=== PATIENT | female | born 1995 | race Caucasian/White ===

== ENCOUNTER 2019-09-22 18:32 | Emergency (ER) | payer OTHER, SELFPAY ==
[2019-09-22 18:52] VITALS: BP 147/100; PULSE 110; RESP 22; TEMP 36.7; O2SAT 99; BMI 46.3
--- NOTE | 2019-09-22 18:56 | HMH.EDUTC ---
[facility] Disposition Clinical Impression: Sunburn, blistering Severe sun exposure Qualifiers: Encounter type: initial encounter Qualified Code(s): X32.XXXA - Exposure to sunlight, initial encounter Disposition: Home, Self-Care Condition on Discharge: Good Instructions: How to Take Care of a Burn, How to Avoid Sunburn, Sunburn, DI for Sunburn, Silver Sulfadiazine, Cephalexin, DI for Blisters Additional Instructions: Take antibiotics as prescribed *Make sure to gently clean area at least twice daily and apply Sivadene and sterile dressing to blisters on bilateral lower legs twice daily as advised You was given the remainder of that container in the [facility] Follow up with family doctor tomorrow as scheduled Watch for worsening signs of infection Return if needed Straight to ER if any life threatening symptoms Prescriptions: cephALEXin [Keflex 500mg Cap] 500 mg PO QID 7 Days #28 cap Transmission Status: Pending to [id number] Referrals: Provider,Referral, MD [Primary Care Provider] - As needed (Follow up tomorrow in the clinic as scheduled) Time of Disposition: 19:32 Medical Decision Making - [place] Inquiry Pt receiving controlled substance: No [place] was queried for this patient: No Vital Signs: 09/22/19 18:52 Temperature 98.1 F Temperature Source Oral Pulse Rate [Right Brachial] 110 H Respiratory Rate 22 Blood Pressure [Right Arm] 147/100 H Blood Pressure Mean [Right Arm] 115 Blood Pressure Source [Right Arm] Automatic Cuff Blood Pressure Position [Right Arm] Sitting 02 Sat by Pulse Oximetry 99 Oxygen Delivery Method Room Air Orders (Tests/Meds): ED MEDICATIONS Discontinued Medications Generic Name Dose Route Start Last Admin Trade Name Sofia PRN Reason Stop Dose Admin Cephalexin HCl 500 mg 09/22/19 19:18 Cephalexin 500mg Capsule PO 09/22/19 19:19 ONCE ONE Protocol Silver Sulfadiazine 1 gm 09/22/19 19:07 Silvadene Cream 400gm TP 09/22/19 19:08 ONCE ONE Medical Decision Narrative: Patient educated to make sure to gently clean sunburn areas on lower extremities with mild soap and water several times a day to help prevent infection and follow up with PCP tomorrow [facility] HPI - General Stated complaint: Blisters on both legs from sunburn Time Seen by Provider: 09/22/19 18:57 Mode of Arrival: Ambulatory Source of Information: Patient Limitations: No Limitations Description of Symptoms (Recalled from Triage Doc. by RN): Pt c/o sever sunburn to BLE. She reports blisters that are draining. HEENT Symptoms (Recalled from RN notes): No Resp Symptoms (Recalled from RN notes): No Skin Symptoms (Recalled from RN notes): Yes MS Symptoms (Recalled from RN notes): No Functional Status (Recalled from RN notes): NA - History of Present Illness Provider Complaint: Patient states that she was seen by PCP on and given Indomethacin and told to follow up tomorrow States that her legs was burned very bad and she had blisters on her lower legs, shoulders and arms States that shoulders and arms are better but today she has been having drainage from the blisters on her legs and she was worried it was infected States that it is still sore and hurts when she touches it - Related Data Previous Rx's Medication Instructions Recorded norgestimate 0.25 mg-ethinyl 1 tab PO DAILY #28 tab 08/16/17 estradiol 35 mcg tablet cephALEXin [Keflex 500mg Cap] 500 mg PO QID 7 Days #28 cap 09/22/19 Allergies Allergy/AdvReac Type Severity Reaction Status Date / Time NO KNOWN ALLERGIES - NKA Allergy Unknown Uncoded 04/04/17 14:02 - Worker's Comp Is this a Worker's Comp case?: No [facility] History - Hepatitis A Screen Drug use history?: No High risk sexual behaviors?: No History of sexually transmitted infection?: No Currently employed?: No Childcare worker?: No Do you have indoor plumbing?: Yes Do you have electricity?: Yes Attestation statement:: This patient yeager
[2019-09-22 19:47] VITALS: BP 119/84; PULSE 86; RESP 18; O2SAT 99
[2019-09-22 20:01] VITALS: BP 119/84; PULSE 86; RESP 18; TEMP 36.7; O2SAT 99
== END 2019-09-22 20:01 | disposition home or self-care (01) ==
PROVIDERS: Emergency Provider Nurse Practitioner
DX: L55.1 Sunburn of second degree (principal); X32.XXXA Exposure to sunlight, initial encounter; Z90.49 Acquired absence of other specified parts of digestive tract
CPT/HCPCS: 99201

== ENCOUNTER 2020-03-06 11:58 | Emergency (ER) | payer OTHER, SELFPAY ==
[2020-03-06 13:45] VITALS: BP 130/89; PULSE 78; RESP 17; TEMP 36.6; O2SAT 99; BMI 41.6
--- NOTE | 2020-03-06 14:10 | HMH.EDUTC ---
[facility] [place] Clinical Impression: Exposure to COVID-19 virus Disposition: Home, Self-Care Condition on Discharge: Good Instructions: Preventing the Spread of Coronavirus Discharge Instructions Additional Instructions: Drink plenty of fluids. Take tylenol for pain or fever. Return if you begin to have difficulty breathing. Follow up with your regular doctor. GO TO THE ER FOR ANY WORSENING SYMPTOMS Prescriptions: Ondansetron [Zofran 4mg ODT] 4 mg PO Q8HP PRN #12 tab.rapdis PRN Reason: Nausea Transmission Status: Received by [id number] Referrals: Jesika Khan APRN [Primary Care Provider] - Time of Disposition: 14:14 Medical Decision Making - Medical Records Medical records reviewed: No: I reviewed the patient's medical records. - [place] Inquiry Pt receiving controlled substance: No Vital Signs: 03/06/20 13:45 03/06/20 14:23 Temperature 97.8 F 97.8 F Temperature Source Oral Pulse Rate 78 Pulse Rate [Right Brachial] 78 Respiratory Rate 17 17 Blood Pressure 130/89 Blood Pressure [Right Arm] 130/89 Blood Pressure Mean [Right Arm] 102 Blood Pressure Source [Right Arm] Automatic Cuff Blood Pressure Position [Right Arm] Sitting 02 Sat by Pulse Oximetry 99 Oxygen Delivery Method Room Air Orders (Tests/Meds): ORDERS Category Date Time Status Covid-19 Nasal PCR ([facility]) Routine Lab 03/06/20 13:40 Received [facility] HPI - General Stated complaint: Headache, nausea Time Seen by Provider: 03/06/20 14:10 Mode of Arrival: Ambulatory Source of Information: Patient Limitations: No Limitations Description of Symptoms (Recalled from Triage Doc. by RN): PATIENT REQUESTING COVID TEST D/T EXPOSURE. C/O NAUSEA, HEADACHE, AND LOSS OF TASTE HEENT Symptoms (Recalled from RN notes): No Resp Symptoms (Recalled from RN notes): No Skin Symptoms (Recalled from RN notes): No MS Symptoms (Recalled from RN notes): No Functional Status (Recalled from RN notes): WNL - History of Present Illness Provider Complaint: She was exposed to covid by a coworker around 4 days ago. She is having some nausea, diarrhea, loss of taste and smell. - Related Data Previous Rx's Medication Instructions Recorded norgestimate 0.25 mg-ethinyl 1 tab PO DAILY #28 tab 08/16/17 estradiol 35 mcg tablet cephALEXin [Keflex 500mg Cap] 500 mg PO QID 7 Days #28 cap 09/22/19 Ondansetron [Zofran 4mg ODT] 4 mg PO Q8HP PRN #12 tab.rapdis 03/06/20 Allergies Allergy/AdvReac Type Severity Reaction Status Date / Time No Known Allergies Allergy Verified 03/06/20 14:01 - Worker's Comp Is this a Worker's Comp case?: No H History - Hepatitis A Screen Drug use history?: No High risk sexual behaviors?: No History of sexually transmitted infection?: No Currently employed?: No Childcare worker?: No Do you have indoor plumbing?: Yes Do you have electricity?: Yes Attestation statement:: This patient has been screened for Hepatitis A risk factors. I have reviewed the patient's past medical history: Yes Other Surgeries: Yes: Cholecystectomy Amputation: No Fractures: No - Social History Smoking Status: Never smoker Alcohol Intake: never Occupational Status: other Family Hx:: Hypertension ROS Obtained: Yes All systems reviewed & no additional complaints - Constitutional Constitutional: Reports system reviewed and no additional complaints, except as docu - Eyes Eyes: Reports system reviewed and no additional complaints, except as docu - ENT Ears, Nose, Mouth, and Throat: Reports system reviewed and no additional complaints, except as docu - Cardiovascular Cardiovascular: Reports system reviewed and no additional complaints, except as docu - Respiratory Respiratory: Yes system reviewed and no additional complaints, except as docu - Gastrointestinal Gastrointestingal: Reports: system reviewed and no additional complaints, except as docu Physical Exam - General Gene
[2020-03-06 14:23] VITALS: BP 130/89; PULSE 78; RESP 17; TEMP 36.6; O2SAT 99
== END 2020-03-06 14:27 | disposition home or self-care (01) ==
PROVIDERS: Emergency Provider Nurse Practitioner Family; PCP Nurse Practitioner Family
DX: Z20.828 Contact with and (suspected) exposure to other viral communicable diseases (principal)
CPT/HCPCS: 99201; U0003

== ENCOUNTER → 2020-04-22 14:08 | Outpatient (CLI) | payer OTHER, SELFPAY ==
--- NOTE | 2020-04-22 14:14 | XR_ITS ---
PROCEDURE: XR KUB CLINICAL INDICATION: LOWER ABD PAIN COMPARISON: No exams were available for comparison FINDINGS: Gas pattern-The bowel gas pattern is unremarkable. No obvious obstruction. Calcifications-No abnormal calcifications are evident. No obvious renal or ureteral calculi. Bones-No acute bony anomalies evident. IMPRESSION: No acute findings. Dictated by: Mario Alberto Jules MD 04/22/2020 17:45 Mario Alberto Jules MD in [place] 04/22/2020 17:45
== END ==
PROVIDERS: PCP Nurse Practitioner Family; Visit Provider Nurse Practitioner Family
DX: R10.30 Lower abdominal pain, unspecified (principal)
CPT/HCPCS: 74018

== ENCOUNTER 2021-03-08 07:31 | Emergency (ER) | payer OTHER, SELFPAY ==
[2021-03-08] VITALS (12 sets, daily range): BP systolic 98–122; BP diastolic 52–75; PULSE 70–104; RESP 18–20; TEMP 36.4; O2SAT 96–100; BMI 44.4
--- NOTE | 2021-03-08 07:45 | ECG_ITS ---
APPROVED REPORT Exam: Resting ECG HR:110 bpm ECG Measurements Heart Rate 110 AXES IN 152 P 32 QRSd 78 QRS 48 QT 318 T 31 QTc 430 Conclusion Sinus tachycardia Possible Left atrial enlargement RSR' or QR pattern in V1 suggests right ventricular conduction delay Nonspecific T wave abnormality Abnormal ECG Electronically signed by : [place]o Alba MD 03/09/2021 12:17:49
[2021-03-08 08:05] LABS: Basophils # 0.1 K/mm3 (0-0.2); Basophils % 0.5 % (0.1-2.0); Eosinophils # 0.1 K/mm3 (0.0-0.4); Eosinophils % 0.3 % (0.1-12.0); Hematocrit 40.9 % (37.0-47.0); Hemoglobin 13.6 g/dL (12.2-16.2); Lymphocytes # 1.4 K/mm3 (0.7-4.5); Lymphocytes % 4.9 % (10-50); Mean Corpuscular HGB Conc 33.2 g/dL (31.8-35.4); Mean Corpuscular Hemoglobin 27.9 pg (27.0-31.2); Mean Corpuscular Volume 84.1 fl (81-99); Mean Platelet Volume 7.6 fl (7.4-10.4); Monocytes # 0.9 K/mm3 (0.1-1.0); Monocytes % 3.1 % (1.7-9.3); Neutrophils # 25.8 K/mm3 (1.8-7.8); Neutrophils % 91.3 % (37.0-80.0); Platelet Count 363 K/mm3 (142-424); Red Blood Count 4.86 M/mm3 (4.20-5.40); Red Cell Distribution Width 12.8 % (11.5-17.5); White Blood Count 28.3 K/mm3 (4.8-10.8)
--- NOTE | 2021-03-08 08:06 | HMH.EDGENADL ---
ED Disposition Clinical Impression: Nausea vomiting and diarrhea Disposition: Home, Self-Care Condition on Discharge: Good Instructions: DI for Nausea -- Adult, DI for Diarrhea and Traveler's Diarrhea -- Adult Prescriptions: Ondansetron [Zofran 4mg ODT] 4 mg PO TIDP PRN #12 tab PRN Reason: Nausea Transmission Status: Pending to [id number] Referrals: Jesika Khan APRN [Primary Care Provider] - - Critical Care Critical Care Time: No Attestation: On 03/08/21, the high probability of a clinically significant, sudden or life threatening deterioration of the following system(s) required my full and direct attention, intervention and personal management. The time I documented below is in addition to time spent performing reported procedures but includes the following listed in this critical care notation. Medical Decision Making - [place] Inquiry Pt receiving controlled substance: No Vital Signs: 03/08/21 07:33 03/08/21 08:00 Temperature 97.6 F Temperature Source Oral Pulse Rate 97 H Pulse Rate [Left Radial] 104 H Respiratory Rate 20 18 Blood Pressure 112/68 Blood Pressure [Right Arm] 113/68 Blood Pressure Mean 82 Blood Pressure Mean [Right Arm] 83 Blood Pressure Source [Right Arm] Automatic Cuff Blood Pressure Position [Right Arm] Sitting 02 Sat by Pulse Oximetry 96 97 Oxygen Delivery Method Room Air - Lab Data Lab Results 03/08/21 07:41: WBC 28.3 H*, RBC 4.86, Hgb 13.6, Hct 40.9, MCV 84.1, MCH 27.9, MCHC 33.2, RDW 12.8, Plt Count 363, MPV 7.6, Neut % (Auto) 91.3 H, Lymph % (Auto) 4.9 L, [place] % (Auto) 3.1, Eos % (Auto) 0.3, Baso % (Auto) 0.5, Neut # (Auto) 25.8 H, Lymph # (Auto) 1.4, [place] # (Auto) 0.9, Eos # (Auto) 0.1, Baso # (Auto) 0.1, Total Counted 100, Neutrophils % (Manual) 87 H, Lymphocytes % (Manual) 10, Monocytes % (Manual) 3, Platelet Estimate Normal, Hypochromasia 1+ 03/08/21 07:41: Sodium 135 L, Potassium 4.2, Chloride 100, Carbon Dioxide 27, Anion Gap 12.2, BUN 12, Creatinine 0.70, Estimated Creat Clear 117, Estimated GFR 104, Est GFR ( Amer) 125, Glucose 120 H, Calcium 9.3 03/08/21 07:41: Serum HCG, Qual Negative 03/08/21 09:00: Urine Color Yellow, Urine Appearance Clear, Urine pH 7.0, Ur Specific [place] 1.015, Urine Protein Trace, Urine Glucose (UA) Negative, Urine Ketones Negative, Urine Blood Negative, Urine Nitrate Negative, Urine Bilirubin Negative, Urine Urobilinogen 0.2, Ur Leukocyte Esterase 1+ A, Urine RBC None, Urine WBC 5-10, Ur Squamous Epith Cells 3-5, Urine Bacteria 1+ 03/08/21 09:00: Lactate 1.3 Result diagrams: 03/08/21 07:41 03/08/21 07:41 Orders (Tests/Meds): ORDERS Category Date Time Status Rapid PCR Covid and Flu A/B Stat Lab 03/08/21 09:00 Received Blood Culture Stat Micro 03/08/21 09:00 Received Urine Culture Stat Micro 03/08/21 09:00 Received Medical Decision Narrative: 25-year-old female with no reported past medical history presents for evaluation of 1 day of nausea, vomiting, diarrhea mild lightheadedness with a normal neurological exam here in the ED. She has mildly tender in the left lower quadrant but without guarding or rebound. Is tachycardic on initial vitals consistent with mild dehydration in the setting of GI losses. Will give IV fluid bolus, Zofran here in the ED. EKG was obtained here in the ED to my arrival which I evaluated and it shows sinus tachycardia without acute ischemic changes. She denies denies VTE risk factors, has no chest pain or trouble breathing, no hypoxia on exam, so acute PE is unlikely. Will plan to reassess after IVF bolus and zofran here in ED. hx and physical more consistent with acute gastroenteritis. Other considerations include gastritis, , skyler. Will obtain cbc, bmp, test. wbc 28k. Lactate and blood cultures obtained as well. Lactate wnl. Urine obtained and urinalysis without significant findings for UTI and patient without urinary symptoms of frequency changes, dysu
[2021-03-08 08:07] LABS: MANUAL DIFFERENTIAL MANUAL DIFFERENTIAL (MANUAL DIFF)
[2021-03-08 08:19] LABS: Anion Gap 12.2 mEq/L (5-15); Blood Urea Nitrogen 12 mg/dl (7-17); Calcium 9.3 mg/dl (8.4-10.2); Carbon Dioxide 27 mmol/L (22.0-30.0); Chloride 100 mmol/L (98-107); Creatinine Clearance Estimated 117 mL/min (50-200); Estimated Glomerular Filt Rate 104 ml/min (>60); GFR (African American) 125 ML/MIN (>60); Glucose 120 mg/dl (74-100); HCG Qualitative, Serum Negative (Negative); Potassium 4.2 mmoL/L (3.5-5.1); Sodium 135 mmol/L (136-145)
[2021-03-08 08:28] LABS: Hypochromasia 1+; Lymphocytes % 10 % (10-50); Monocytes % 3 % (2-9); Neutrophils % 87 % (42-76); Platelet Estimate Normal; Total Cells Counted 100
--- NOTE | 2021-03-08 09:10 | XR_ITS ---
PROCEDURE: XR CHEST PORTABLE CLINICAL HISTORY: weakness COMPARISON: No exams were available for comparison FINDINGS: The cardiomediastinal silhouette and pulmonary vascularity are within normal limits. The lungs are clear without infiltrates, suspicious nodules, or pleural effusions. No acute bony abnormalities. IMPRESSION: No acute findings. Dictated by: Mario Alberto Jules MD 03/08/2021 09:56 Mario Alberto Jules MD in [place] 03/08/2021 09:56
[2021-03-08 09:24] LABS: Microscopic, Urine URINE MICROSCOPIC (MICROSCOPIC)
[2021-03-08 09:30] LABS: Lactic Acid 1.3 mmol/L (0.7-2.1)
[2021-03-08 09:35] LABS: Appearance,Urine CLEAR (Clear); Bilirubin,Urine Negative (Negative); Blood, Urine Negative (Negative); Color,Urine YELLOW (Yellow); Glucose,Urine (UA) Negative (Negative); Ketones,Urine Negative (Negative); Leukocyte Esterase,Urine 1+ (Negative); Nitrate,Urine Negative (Negative); Protein,Urine TRACE (Negative); Specific Gravity, Urine 1.015 (1.005-1.030); Urobilinogen,Urine 0.2 EU/dl (0.2)
[2021-03-08 09:48] LABS: Bacteria,Urine 1+ /lpf
[2021-03-08 10:19] LABS: Coronavirus 19, PCR Not Detected (NotDetected); Influenza A, PCR Not Detected (NotDetected); Influenza B, PCR Not Detected (NotDetected)
== END 2021-03-08 12:02 | disposition home or self-care (01) ==
PROVIDERS: Emergency Provider Student in an Organized Health Care Education/Training Program; PCP Nurse Practitioner Family
DX: R42 Dizziness and giddiness (principal); R11.2 Nausea with vomiting, unspecified; R19.7 Diarrhea, unspecified
CPT/HCPCS: 36415; 71045; 80048; 81001; 83605; 84703; 85007; 85025; 87040; 87086; 87088; 87186; 93005; 99283; C9803; U0003; U0005

== ENCOUNTER → 2021-04-30 08:57 | Outpatient (CLI) | payer OTHER, SELFPAY | PROVIDERS: Visit Provider Nurse Practitioner | DX: U07.1 COVID-19 (principal) | CPT/HCPCS: C9803; U0003; U0005 ==

== ENCOUNTER → 2022-05-20 18:53 | Outpatient (CLI) | payer OTHER, BC, SELFPAY ==
[2022-05-20 17:51] LABS: Basophils # 0.1 K/mm3 (0-0.2); Basophils % 1.1 % (0.1-2.0); Eosinophils # 0.1 K/mm3 (0.0-0.4); Eosinophils % 1.7 % (0.1-12.0); Hematocrit 42.1 % (37.0-47.0); Hemoglobin 13.4 g/dL (12.2-16.2); Lymphocytes % 40.2 % (10-50); Mean Corpuscular HGB Conc 31.7 g/dL (31.8-35.4); Mean Corpuscular Hemoglobin 26.6 pg (27.0-31.2); Mean Corpuscular Volume 83.9 fl (81-99); Monocytes # 0.4 K/mm3 (0.1-1.0); Monocytes % 5.1 % (1.7-9.3); Neutrophils # 3.9 K/mm3 (1.8-7.8); Neutrophils % 51.9 % (37.0-80.0); Platelet Count 382 K/mm3 (142-424); Red Blood Count 5.02 M/mm3 (4.20-5.40); Red Cell Distribution Width 13.5 % (11.5-17.5); White Blood Count 7.4 K/mm3 (4.8-10.8)
[2022-05-20 18:57] LABS: Alanine Aminotransferase 33 U/L (12-78); Albumin Level 4.1 g/dl (3.5-5.0); Albumin/Globulin Ratio 1.4 (1.1-1.8); Alkaline Phosphatase 76 U/L (38-126); Anion Gap 10.7 mEq/L (5-15); Aspartate Amino Transferase 31 U/L (14-36); Bilirubin,Total 0.6 mg/dl (0.2-1.3); Blood Urea Nitrogen 11 mg/dl (7-17); Carbon Dioxide 26 mmol/L (22.0-30.0); Chloride 107 mmol/L (98-107); Chol/HDL Ratio 3.5 (1-3.5); Cholesterol 171 mg/dl (140-200); Estimated Glomerular Filt Rate 103 ml/min (>60); GFR (African American) 124 ML/MIN (>60); Globulin 2.9 g/dL (1.3-3.2); Glucose 95 mg/dl (74-100); HDL Cholesterol 49 mg/dl (40-60); Potassium 4.7 mmoL/L (3.5-5.1); Sodium 139 mmol/L (136-145); Triglycerides 104 mg/dl (30-150); VLDL Cholesterol 21 mg/dL (0-40)
[2022-05-20 19:08] LABS: Direct LDL Cholesterol 96.07 mg/dL (100-129)
[2022-05-20 19:17] LABS: Free Thyroxine Index 3.1 ug/dL (5.93-13.13); T4 (Thyroxine) 9.7 ug/dl (5.53-11.0); Triiodothryronine (T3) Uptake 32 % (23.5-40.5)
[2022-05-20 19:31] LABS: Thyroid Stimulating Hormone 1.28 uIU/mL (0.465-4.68)
== END ==
PROVIDERS: PCP Nurse Practitioner Family; Visit Provider Nurse Practitioner Family
DX: I10 Essential (primary) hypertension (principal); Z79.899 Other long term (current) drug therapy
CPT/HCPCS: 80053; 80061; 84436; 84443; 84479; 85025

== ENCOUNTER 2022-07-04 08:32 | Emergency (ER) | payer OTHER, BC, SELFPAY ==
[2022-07-04 08:40] VITALS: BP 117/82; PULSE 112; RESP 20; TEMP 36.8; O2SAT 97; BMI 45.6
--- NOTE | 2022-07-04 09:00 | EXP.UTC ---
Discharge Plan Disposition Patient Disposition: Home, Self-Care Condition: Good Prescriptions Prescriptions: No Action mometasone 0.1 % cream topical clotrimazole-betamethasone 1-0.05 % cream 1 applic topical BID metoprolol succinate 25 mg tablet extended release 24 hr 25 mg PO DAILY Qty: 30 2RF fluticasone propionate [Flonase Allergy Relief] 50 mcg/actuation spray,suspension 2 spray intranasal DAILY Rx Instructions: administer into each nostril fexofenadine [Alanna Allergy] 180 mg tablet 180 mg PO DAILY omeprazole 20 mg capsule,delayed release(DR/EC) 20 mg PO DAILY PRN hydrochlorothiazide 25 mg tablet 12.5 mg PO DAILY Qty: 30 2RF Referrals Follow up/Referrals: Hussain Montiel MD [Primary Care Provider] - See instructions Activity Restrictions/Add. Instructions Additional Instructions/Restrictions: *Monitor Temp, Over the counter Motrin or Tylenol as directed/as needed Tylenol every 4 hours and Motrin every 6 hours (as long as your family doctor has told you that you can take it) for fever or pain. and straight to ER if unable to lower temp less than 101.0 after medication given *Warm salt water gargles may help to soothe the throat *Throat Lozenges? *Warm fluids like tea with honey may help to soothe the throat? *Sleep elevated *Humidifier/Vaporizer Over the counter cough medication like Robittusin may help with cough if you can take it Your throat swab was sent for culture. Those results are typically sent to your primary care. Be sure to follow up in 2-3 days with your family doctor/primary care physician if no improvement so they can review those result and treat if necessary. If you don?t have a primary care doctor, I recommend you get one but in the mean time, you will have to return to a walk in clinic Follow up IMMEDIATELY for new or worsening symptoms or no Noticeable improvement over the next 48-72 hours. 911 for difficulty breathing or swallowing Clinical Impressions Clinical Impression: Viral upper respiratory infection Stand Alone Forms Stand Alone Forms: Work/School Release Instructions Patient Instructions: Sore Throat, Cough, DI for Viral Upper Respiratory Infection -- Adult Discharge ED Provider: Annabel Farrar [facility] [place] General Stated complaint: sore throat,cough,nasal congestion Time Seen by Provider: 07/04/22 09:01 History of Present Illness Provider Complaint: Patient states that her daughter tested positive for strep throat yesterday and last night she started having sore throat and headache with nasal congestion States that today her throat was still hurting so she came in to get checked for strep throat Related Data Home Medications Medication Instructions Recorded Confirmed omeprazole 20 mg capsule,delayed 20 mg PO DAILY PRN 05/20/22 06/10/22 release clotrimazole-betamethasone 1 1 applic topical BID 06/10/22 06/10/22 %-0.05 % topical cream mometasone 0.1 % topical cream g topical 06/10/22 06/10/22 hydrochlorothiazide 25 mg tablet 12.5 mg PO DAILY . 07/04/22 07/04/22 metoprolol succinate 25 mg 25 mg PO DAILY . 07/04/22 07/04/22 tablet,extended release 24 hr Allergies Allergy/AdvReac Type Severity Reaction Status Date / Time No Known Allergies Allergy Verified 07/04/22 09:01 [facility] Disclaimer: The information contained in this section may have been updated after the patient was seen, as this information can be updated by other users. Medical History Allergies Migraines Surgical History History of cholecystectomy History of colonoscopy Family History Grandfather Cancer Diabetes Hypertension Father Hypertension Social History Smoking Status: Never smoker alcohol int
[2022-07-04 09:04] LABS: UTC Strep Screen (Rapid) Negative (Negative)
[2022-07-04 09:10] VITALS: BP 117/82; PULSE 112; RESP 20; TEMP 36.8; O2SAT 97
== END 2022-07-04 09:10 | disposition home or self-care (01) ==
PROVIDERS: Emergency Provider Nurse Practitioner; PCP Family Medicine
DX: J06.9 Acute upper respiratory infection, unspecified (principal); R51.9 Headache, unspecified; B34.9 Viral infection, unspecified
CPT/HCPCS: 87880; 99212; 99213; G0463

== ENCOUNTER 2022-08-15 10:46 | Emergency (ER) | payer OTHER, BC, SELFPAY ==
--- NOTE | 2022-08-15 10:58 | EXP.UTC ---
Discharge Plan Disposition Patient Disposition: Home, Self-Care Condition: Good Prescriptions Prescriptions: New ciprofloxacin HCl [Cipro] 500 mg tablet 500 mg PO BID 7 Days Qty: 14 0RF phenazopyridine [Pyridium] 200 mg tablet 200 mg PO Q8H 2 Days Qty: 6 0RF Referrals Follow up/Referrals: Hussain Montiel MD [Primary Care Provider] - See instructions Activity Restrictions/Add. Instructions Additional Instructions/Restrictions: Drink plenty of fluids. Take tylenol or ibuprofen for pain or fever. Take the medications as directed. Follow up with your regular doctor. GO TO THE ER FOR ANY WORSENING SYMPTOMS The pyridium will make your urine turn orange, this is an expected side effect. It will stain your clothes if it comes into contact with them. We will culture the urine. That will tell what bacteria is causing your infection and which antibiotics will treat it best. Sometimes the first antibiotic we prescribe turns out to not work against different bacteria. So, make sure you follow up within 3 days if you are not getting better. Clinical Impressions Clinical Impression: UTI (urinary tract infection) Instructions Patient Instructions: Urinary Tract Infection, Urine Culture, DI for Urinary Tract Infection (UTI), Phenazopyridine Discharge ED Provider: Deny Gonzalez [facility] General Stated complaint: lower stomach and back pain Time Seen by Provider: 08/15/22 10:58 History of Present Illness Provider Complaint: She states that since this morning she has had lower abdominal pain and low back pain. Related Data Previous Rx's Medication Instructions Recorded ciprofloxacin HCl 500 mg tablet 500 mg PO BID 7 days #14 tabs 08/15/22 (Cipro) phenazopyridine 200 mg tablet 200 mg PO Q8H 2 days #6 tabs 08/15/22 (Pyridium) Allergies Allergy/AdvReac Type Severity Reaction Status Date / Time No Known Allergies Allergy Verified 07/04/22 09:01 [facility] Disclaimer: The information contained in this section may have been updated after the patient was seen, as this information can be updated by other users. Medical History Allergies Migraines Surgical History History of cholecystectomy History of colonoscopy Family History Grandfather Cancer Diabetes Hypertension Father Hypertension Social History Smoking Status: Never smoker alcohol intake: never current occupational status: other Travel in the last 8 weeks: None ROS Obtained: Yes All systems reviewed & no additional complaints except as documented Constitutional Constitutional: Reports system reviewed and no additional complaints, except as documented, Denies chills and Denies fever(s) Eyes Eyes: Denies eye discharge ENT Ears, Nose, Mouth, and Throat: Denies dysphagia, Denies sore throat and Denies throat swelling Cardiovascular Cardiovascular: Denies chest pain and Denies dyspnea Respiratory Respiratory: Denies chest congestion, Denies cough and Denies dyspnea Gastrointestinal Gastrointestingal: Denies abdominal pain, constipation, diarrhea, dysphagia, nausea or vomiting Genitourinary Female Genitourinary: Reports as per HPI, Reports dysuria, Reports urinary frequency, Denies urinary incontinence, Reports urinary hesitancy and Reports urinary urgency Musculoskeletal Musculoskeletal: Denies arthralgias and Reports back pain Integumentary/Breasts Skin/Breast: Denies rash Neurologic Neurologic: Denies paresthesias Allergic/Immunologic Allergic/Immunologic: Denies throat swelling Physical Exam General General appearance: alert and in no apparent distress Head Head exam: atraumatic and normocephalic Eye Eye exam: Present normal appearance, PERRL and EOMI ENT ENT exam: Present normal exam, mucous
[2022-08-15 11:03] VITALS: BP 124/80; PULSE 83; RESP 16; TEMP 36.6; O2SAT 98; BMI 43.8
[2022-08-15 11:54] LABS: Apearance,Urine Cloudy (Clear); Color,Urine Red (Yellow); PH,Urine 5.5 (5.0-8.5); Specific Gravity, Urine 1.025 (1.005-1.030)
[2022-08-15 11:55] LABS: Bilirubin,Urine Negative (Negative); Blood, Urine 3+ (Negative); Glucose,Urine (UA) Negative (Negative); Ketones,Urine Negative (Negative); Protein,Urine 1+ (Negative); UTC Leukocyte Esterase,Urine Trace (Negative); UTC Nitrate,Urine Negative (Negative); Urobilinogen,Urine 0.2 EU/dl (0.2)
[2022-08-15 12:13] VITALS: BP 124/80; PULSE 83; RESP 18; TEMP 36.6; O2SAT 99
== END 2022-08-15 12:14 | disposition home or self-care (01) ==
PROVIDERS: Emergency Provider Nurse Practitioner Family; PCP Family Medicine
DX: N39.0 Urinary tract infection, site not specified (principal)
CPT/HCPCS: 81003; 87086; 87088; 87186; 99212; 99214; G0463

== ENCOUNTER 2023-08-25 07:52 | Outpatient (CLI) | payer OTHER, BC, SELFPAY ==
--- NOTE | 2023-08-25 07:56 | CT_ITS ---
FINAL REPORT TECHNIQUE: Thin section axial CT images of the facial bones and sinuses were obtained without contrast. Coronal reformatted images were also obtained.This study was performed with techniques to keep radiation doses as low as reasonably achievable, (ALARA). Individualized dose reduction techniques using automated exposure control or adjustment of mA and/or kV according to the patient''''s size were employed. CLINICAL HISTORY: SINUSITIS COMPARISON: None FINDINGS: There is moderate mucosal thickening of the right sphenoid and maxillary sinuses. There is mild mucosal thickening in the other paranasal sinuses. No fluid levels are identified. The ostiomeatal units have an unremarkable appearance. The nasal septum is in the midline. No fracture or acute bony abnormality is identified. IMPRESSION: Moderate mucosal thickening in the right sphenoid and right maxillary sinuses, with mild mucosal thickening in other sinuses. No air-fluid levels are identified. Reviewed, Interpreted and Dictated by Yohan Nogueira III, MD Transcribed by Maribel Beatty Authenticated and [facility]
== END 2023-08-25 23:59 | disposition home or self-care (01) ==
LOC: RAD 07:52
PROVIDERS: PCP Family Medicine; Visit Provider Nurse Practitioner
DX: J32.9 Chronic sinusitis, unspecified (principal)
CPT/HCPCS: 70486

== ENCOUNTER 2024-07-05 11:00 | Outpatient (CLI) | payer OTHER, SELFPAY ==
[2024-07-05 16:43] LABS: Basophils % 0.5 % (0.1-2.0); Eosinophils # 0.1 K/mm3 (0.0-0.4); Hematocrit 40.4 % (37.0-47.0); Hemoglobin 12.9 g/dL (12.2-16.2); Lymphocytes # 3.7 K/mm3 (0.7-4.5); Lymphocytes % 42.3 % (10-50); Mean Corpuscular HGB Conc 31.9 g/dL (31.8-35.4); Mean Corpuscular Hemoglobin 27.2 pg (27.0-31.2); Mean Corpuscular Volume 85.2 fl (81-99); Mean Platelet Volume 10.5 fl (7.4-10.4); Monocytes # 0.6 K/mm3 (0.1-1.0); Monocytes % 7.1 % (1.7-9.3); Neutrophils # 4.3 K/mm3 (1.8-7.8); Neutrophils % 48.8 % (37.0-80.0); Platelet Count 287 K/mm3 (142-424); Red Blood Count 4.74 M/mm3 (4.20-5.40); Red Cell Distribution Width 12.8 % (11.5-17.5); White Blood Count 8.8 K/mm3 (4.8-10.8)
[2024-07-05 17:07] LABS: Hemoglobin A1C 5.1 % (4.0-6.0)
[2024-07-05 17:34] LABS: Alanine Aminotransferase 24 U/L (12-78); Albumin Level 4.4 g/dl (3.5-5.0); Albumin/Globulin Ratio 1.6 (1.1-1.8); Alkaline Phosphatase 54 U/L (38-126); Anion Gap 12.5 mEq/L (5-15); Aspartate Amino Transferase 27 U/L (14-36); Bilirubin,Total 1.3 mg/dl (0.2-1.3); Blood Urea Nitrogen 7 mg/dl (7-17); Calcium 9.2 mg/dl (8.4-10.2); Carbon Dioxide 25 mmol/L (22.0-30.0); Chloride 107 mmol/L (98-107); Chol/HDL Ratio 3.2 (1-3.5); Cholesterol 152 mg/dl (140-200); Estimated Glomerular Filt Rate 121 ml/min (>60); GFR (African American) 146 ML/MIN (>60); Globulin 2.7 g/dL (1.3-3.2); Glucose 79 mg/dl (74-100); HDL Cholesterol 47 mg/dl (40-60); Potassium 4.5 mmoL/L (3.5-5.1); Sodium 140 mmol/L (136-145); Total Protein,Serum 7.1 g/dl (6.3-8.2); Triglycerides 97 mg/dl (30-150); VLDL Cholesterol 19 mg/dL (0-40)
[2024-07-05 17:45] LABS: Direct LDL Cholesterol 75.93 mg/dL (100-129)
[2024-07-05 17:51] LABS: 25-OH Vitamin D, Total 14.2 ng/mL (30-100)
[2024-07-05 17:54] LABS: Free Thyroxine Index 2.8 ug/dL (5.93-13.13); T4 (Thyroxine) 8.8 ug/dl (5.53-11.0); Triiodothryronine (T3) Uptake 32 % (23.5-40.5)
[2024-07-05 18:08] LABS: Thyroid Stimulating Hormone 0.11 uIU/mL (0.465-4.68)
[2024-07-05 18:16] LABS: HIV Combo NEGATIVE (Negative)
[2024-07-05 18:25] LABS: Hepatitis C Ab Qual. W/ RFX NEGATIVE (Negative)
== END 2024-07-05 23:59 | disposition home or self-care (01) ==
LOC: LAB.DROPOF 07-08 10:54
PROVIDERS: PCP Nurse Practitioner Family; Visit Provider Nurse Practitioner Family
DX: R53.83 Other fatigue (principal); R68.89 Other general symptoms and signs; L65.9 Nonscarring hair loss, unspecified; Z11.59 Encounter for screening for other viral diseases; Z11.4 Encounter for screening for human immunodeficiency virus [HIV]
CPT/HCPCS: 80053; 80061; 82306; 83036; 84436; 84443; 84479; 85025; 86803; 87389

== ENCOUNTER 2024-07-18 10:50 | Outpatient (CLI) | payer OTHER, SELFPAY ==
--- NOTE | 2024-07-18 11:00 | US_ITS ---
FINAL REPORT TECHNIQUE: Real-time grayscale and color ultrasound of the thyroid was performed. CLINICAL HISTORY: Abnormal TSH COMPARISON: None FINDINGS: The thyroid gland is atrophic measuring 34 x 14 x 11 mm on the right and 39 x 12 x 13 mm on the left. The isthmus measures 2 mm. The parenchyma is homogeneous.. Nodules: No evidence of mass. IMPRESSION: Atrophic thyroid without evidence of neoplasm. Reviewed, Interpreted and Dictated by Maxwell Howard MD Transcribed by Pily Young Authenticated and [facility]
== END 2024-07-18 23:59 | disposition home or self-care (01) ==
LOC: RAD 10:51
PROVIDERS: PCP Nurse Practitioner Family; Visit Provider Nurse Practitioner Family
DX: R79.89 Other specified abnormal findings of blood chemistry (principal); E03.4 Atrophy of thyroid (acquired)
CPT/HCPCS: 76536

== ENCOUNTER 2025-04-04 08:36 | Outpatient (CLI) | payer BC, SELFPAY ==
[2025-04-04 16:47] LABS: Hematocrit 40.5 % (37.0-47.0); Hemoglobin 12.6 g/dL (12.2-16.2); Immature Granulocytes % 0.2 %; Mean Corpuscular HGB Conc 31.1 g/dL (31.8-35.4); Mean Corpuscular Hemoglobin 27.2 pg (27.0-31.2); Mean Corpuscular Volume 87.5 fl (81-99); Nucleated Red Blood Cells % 0 %; Platelet Count 277 K/mm3 (142-424); Red Blood Count 4.63 M/mm3 (4.20-5.40); Red Cell Distribution Width-SD 41.4 fL; White Blood Count 9.8 K/mm3 (4.8-10.8)
[2025-04-04 17:13] LABS: Alanine Aminotransferase 22 U/L (12-78); Albumin Level 4.3 g/dl (3.5-5.0); Albumin/Globulin Ratio 1.5 (1.1-1.8); Alkaline Phosphatase 70 U/L (38-126); Anion Gap 12.4 mEq/L (5-15); Aspartate Amino Transferase 25 U/L (14-36); Bilirubin,Total 1.3 mg/dl (0.2-1.3); Blood Urea Nitrogen 11 mg/dl (7-17); Calcium 9.4 mg/dl (8.4-10.2); Carbon Dioxide 26 mmol/L (22.0-30.0); Chloride 102 mmol/L (98-107); Cholesterol 153 mg/dl (140-200); Creatinine,Serum 0.70 mg/dl (0.52-1.04); Estimated Glomerular Filt Rate 100 ml/min (>60); GFR (African American) 121 ML/MIN (>60); Globulin 2.9 g/dL (1.3-3.2); Glucose 75 mg/dl (74-100); HDL Cholesterol 59 mg/dl (40-60); Potassium 4.4 mmoL/L (3.5-5.1); Sodium 136 mmol/L (136-145); Total Protein,Serum 7.2 g/dl (6.3-8.2); Triglycerides 133 mg/dl (30-150)
[2025-04-04 17:43] LABS: Thyroid Stimulating Hormone 0.97 uIU/mL (0.465-4.68)
--- OUTSIDE RECORDS SUMMARY | 2025-04-05 09:34 | XMS_ITS | Clinical Summary ---
[facility] Address [address] [place] [address] Care Team Providers Care Legal Mediator Name Role Phone Provider, No Known Primary Care Provider Unavail able Allergies No known active allergies Medications Etonogestrel (NEXPLANON) 68 MG implant subdermal implant Inject 1 each into the skin 1 (One) Time. Active Active Problems No known active problems Family History Relation Name Status Comments Brother 1 Alive Brother 2 Alive Brother 3 Alive Father Alive Mother Alive Sister Alive Social History Tobacco Use Types Packs/Day Years Used Date Smoking Tobacco: Every Day Alcohol Use Standard Drinks/Week Comments Not Currently 0 (1 standard drink = 0.6 oz pur e alcohol) Abuse Screen Answer Date Recorded Unsafe at Home or Work/School Not on file Feels Threatened by Someone? Not on file 03/2023 Does Anyone Keep You from Co ntacting Others or Doint Things Outside the Home? Not on file 01/26/2023 Physical Sign of Abuse Present Not on file 1 Housing Stability Answer Date Recorded Current Living Arrangements Not on file 01/15 Potentially Unsafe Housing Conditions Not on kimberley e 01/26/2023 Family and Community Support Answer Brando e Recorded Help with Day-to-Day Activities Not on file 01/26/2023 Lonely or Isolated Not on file 01/26/2023 Employment Answer Date Recorded Do you want help finding or keeping work or a tom b? Not on file 01/26/2023 Disabilities Answer Date Recorded Concentrating, Remembering, or Making Decisions Difficulty Not on file 01/26/2023 Doing Errands Independently Difficulty Not on fi le 01/26/2023 Education Answer Date Recorded Help with school or training? Not on file 10 /03/2023 Preferred Language Not on file 01/26/2023 Comments Unknown Sex and Gender Information Value Date Recorded Sex Assigned at Not on file Legal Sex Female 11:47 AM EDT Gender Identity Not on file Sexual Orientation Not on file Occupation Industry Job Start Date Job End Date [employer] Not on file Not on file Not on file Last Filed Vital Signs Vital Sign Reading Time Taken Comments Blood Pressure - - Pulse 81 08/14/2017 11:59 AM EDT Temperature 36.8 C (98.3 F) 08/14/2017 11:59 AM EDT Respiratory Rate 16 08/14/2017 11:59 AM EDT Oxygen Saturation 99% 08/14/2017 11:59 AM EDT Inhaled Oxygen Concentration - - Weight 108 kg (238 lb) 08/14/2017 11:59 AM EDT Height 170.2 cm (5' 7 ) 08/14/2017 11:59 AM EDT Body Mass Index 37.28 08/14/2017 11:59 AM EDT Plan of Treatment Health Maintenance Due Date Last Done Comments Annual Gynecologic Pelvic an d Breast Exam 1997 TDAP/TD VACCINES (1 - Tdap) 2016 ANNUAL PHYSICAL 08/14/2017 HEPATITIS C SCREENING 08/14/2017 INFLUENZA VACCINE 11/15/2024 Pneumococcal Vaccine 0-49 Aged Out No longer eligible based on patient's age to complete this topic Insurance PPO Care Teams Legal Mediator Relationship Specialty Start Date End Date Provider, No Known [facility] [place] [address] PCP - General 08/14/17
== END 2025-04-04 23:59 | disposition home or self-care (01) ==
LOC: LAB.DROPOF 04-05 09:33
PROVIDERS: PCP Nurse Practitioner Family; Visit Provider Nurse Practitioner Family
DX: I10 Essential (primary) hypertension (principal)
CPT/HCPCS: 80053; 80061; 84443; 85025

== ENCOUNTER 2025-04-04 09:08 | Outpatient (CLI) | payer BC, SELFPAY ==
[2025-04-07 09:15] LABS: 25-OH Vitamin D, Total 23.2 ng/mL (30-100)
--- OUTSIDE RECORDS SUMMARY | 2025-04-11 09:17 | XMS_ITS | Clinical Summary ---
[facility] Address [address] [place] [address] Care Team Providers Care Service Coordinator Name Role Phone Provider, No Known Primary [...] complete this topic Insurance PPO Care Teams Service Coordinator Relationship Specialty Start Date End Date Provider, No Known [facility] [place] [place] [address] PCP - General 08/14/17
--- OUTSIDE RECORDS SUMMARY | 2025-04-14 12:36 | XMS_ITS | Clinical Summary ---
[facility] Address [address] [place] [address] Care Team Providers Care Communications Supervisor Name Role Phone Provider, No Known Primary [...] complete this topic Insurance PPO Care Teams Communications Supervisor Relationship Specialty Start Date End Date Provider, No Known [facility] [place] [address] PCP - General 08/14/17
== END 2025-04-07 23:59 | disposition home or self-care (01) ==
LOC: LAB.DROPOF 04-14 12:34
PROVIDERS: PCP Nurse Practitioner Family; Visit Provider Nurse Practitioner Family
DX: E55.9 Vitamin D deficiency, unspecified (principal)
CPT/HCPCS: 82306